=== PATIENT | male | born 1990 | race Caucasian/White ===

== ENCOUNTER 2022-03-01 19:47 | Emergency (ER) | payer OTHER, SELFPAY ==
[2022-03-01 19:58] VITALS: BP 148/84; PULSE 101; RESP 16; TEMP 37; O2SAT 99
[2022-03-01] MEDS: diphenhydrAMINE 25 MG CAPSULE 50 MG PO (20:33)
[2022-03-01] MEDS: LORazepam 0.5 MG TABLET PO (20:33)
[2022-03-01 20:46] VITALS: PULSE 67; O2SAT 98
[2022-03-01 21:00] VITALS: PULSE 87; O2SAT 96
--- NOTE | 2022-03-01 21:07 | ED_ITS ---
HPI - Weakness General Date Seen: 03/01/22 Chief complaint: Weakness Stated complaint: Dizzy feels faint Time Seen by Provider: 03/01/22 19:51 Source: patient and family Mode of arrival: ambulatory Limitations: no limitations History of Present Illness HPI Narrative: Patient is a 31-year-old gentleman who presents here with his , they were driving home from a family gathering, and he felt dizzy and faint. Whenever he set up that was worsening it was almost like he was on a ship, he noted that seem like he is balance was off. Denies a headache, diplopia double vision, associated with this and never had this before. Does not have a history of a fever chills, feels a little bit nauseous, but not greatly. Denies using any alcohol today, falls injury, or feeling really sick. Denies any ringing in his ears, or trauma. He is on medications for hypertension, and has been taking them normally. MD Complaint: generalized weakness Onset (ago): hour(s) Exacerbating factors: movement Associated symptoms: denies other symptoms Related Data Previous Rx's Medication Instructions Recorded nirmatrelvir 300 mg (150 mg See Rx Instructions PO .COMPLEX 03/01/22 x2)-ritonavir 100 mg tablet,dose #30 ea pack(EUA) (Paxlovid) nirmatrelvir 300 mg (150 mg See Rx Instructions PO .COMPLEX 03/01/22 x2)-ritonavir 100 mg tablet,dose #30 ea pack(EUA) (Paxlovid) Allergies Allergy/AdvReac Type Severity Reaction Status Date / Time codeine AdvReac Intermediate Verified 03/01/22 20:03 Penicillins AdvReac Intermediate Verified 03/01/22 20:03 Review of Systems Status of ROS: Reports: 10 or more systems reviewed and unremarkable except as noted in History and below PFSH PFS Social History Smoking Status: Never smoker Do you use any of these nicotine containing products: None Second hand tobacco smoke exposure: No How often do you have a drink containing alcohol: 2-4 times a month How many standard drinks containing alcohol do you have on a typical day: 3 or 4 How often do you have six or more drinks on one occasion: Less than monthly AUDIT-C Alcohol total score: 4 Non-prescribed substance use: denies use service: No Exam Narrative: Exam Narrative: On examination here in stabilization room 2 he is alert and oriented with a GCS of 15/15, nonfocal. Talking to me normally, however when I sit him up he is symptoms recur, briefly. There is some horizontal nystagmus bilaterally, beats common his did notice this. His TMs bilaterally are normal his oropharynx is normal his cranial nerves 3-12 are normal, his fundi appear normal his pupils are equal round reactive to light. Neck is supple full range of motion carotid upstrokes are equal, and JVP is flat. Chest is clear bilaterally no wheezing crackles noted heart sounds are normal, abdomen is soft no guarding no organomegaly. Moves all extremities independently and well his coordination is excellent, proximal verses distal muscle groups are normal, and he is symmetrically normal. Reflexes are normal in his upper lower extremities, muscle bulk is normal there are no rashes. Const: Vital Signs, click to edit/add: Vital Signs - 24 hr 03/01/22 19:58 03/01/22 20:46 03/01/22 21:00 Temperature 98.6 F Pulse Rate 67 87 Pulse Rate [Left P ulse Oximeter] 101 H Respiratory Rate 16 Blood Pressure [Ri ght Upper Arm] 148/84 H Pulse Oximetry 99 98 96 Oxygen Delivery Me thod Room Air 03/01/22 21:30 Temperature Pulse Rate 86 Pulse Rate [Left P ulse Oximeter] Respiratory Rate Blood Pressure [Ri ght Upper Arm] Pulse Oximetry 97 Oxygen Delivery Me thod Documenting provider has reviewed patient's vital signs: yes Course Course Hospital Course: Patient has remained stable he is vertigo did improve with the medications we use, I discussed with him that his COVID is positive, and this is can be a cause of the vertigo. Given the fact that he has an elevated BMI, and is on medications for hypertension he would be a candidate for Paxil of it. I went over the risks benefits and side effects of this with him, and checked with the liver pool interaction check her, both his blood pressure medications were okay to take with the Paxlovid Vital Signs Vital signs: Initial Vital Signs Temperature 98.6 F 03/01/22 19:58 Temperature Source Temporal Artery Scan 03/01/22 19:58 Pulse Rate 101 H 03/01/22 19:58 Pulse Rhythm 03/01/22 19:58 Respiratory Rate 16 03/01/22 19:58 Blood Pressure 148/84 H 03/01/22 19:58 Blood Pressure Mean 105 03/01/22 19:58 Blood Pressure Position Semi-Fowlers 03/01/22 19:58 Pulse Oximetry 99 03/01/22 19:58 Oxygen Delivery Method 03/01/22 19:58 Vital Signs Temperature 98.6 F 03/01/22 19:58 Pulse Rate 101 H 03/01/22 19:58 Respiratory Rate 16 03/01/22 19:58 Blood Pressure 148/84 H 03/01/22 19:58 Pulse Oximetry 99 03/01/22 19:58 Oxygen Delivery Method 03/01/22 19:58 Temperature 98.6 F 03/01/22 19:58 Pulse Rate 86 03/01/22 21:30 Respiratory Rate 16 03/01/22 19:58 Blood Pressure 148/84 H 03/01/22 19:58 Pulse Oximetry 97 03/01/22 21:30 Oxygen Delivery Method 03/01/22 19:58 MDM - Weakness MDM Narrative Medical decision making narrative: Life-threatening differential diagnosis considered include stroke, coronary artery disease, pneumonia, and heart failure. Other differential diagnosis include but are not limited to electrolyte imbalances, anemia, medication reactions, and urinary tract infection Medical Records Attestation: I reviewed the patient's medical records. Lab Data Attestation: I reviewed the patient's lab results. Labs: Lab Results 03/01/22 Range/Units 20:22 SARS-CoV-2 (PCR) POSITIVE SARS-CoV-2 A (Negative) Influenza Type A (PCR) Negative PCR FLU A (Negative) Influenza Type B (PCR) Negative PCR FLU B (Negative) RSV (PCR) Negative PCR RSV (Negative) Discharge Plan Discharge Clinical Impression: COVID-19, Vertigo Patient Disposition: Home w/ Parent or Adult Condition: Stable Instructions: Vertigo (DC), How To Wash Your Hands (ED), Dizziness (ED), Droplet Precautions (ED), COVID-19 (Coronavirus Disease 2019) (ED), COVID-19 and Chronic Health Conditions (ED), COVID-19: Slow the Coronavirus Spread (ED), Face Coverings (Masks) and COVID-19 (ED) Additional Instructions: Benadryl 25 mg to 50 mg p.o. as needed for the vertigo, this can be taken every 6 hours, side effects are making you tired, Paxil bid will decrease chance of complications secondary to the COVID, please take this as directed, you may take this with your blood pressure medications follow up here if worsening conditions such as respiratory problems with breathing, it may be worthwhile to by an oxygen saturation monitor. Prescriptions: New Paxlovid (EUA) 300 mg (150 mg x 2)-100 mg tablets,dose pack See Rx Instructions .ROUTE .COMPLEX Qty: 30 0RF Rx Instructions: take TWO 150 mg tablets of nirmatrelvir with ONE 100 mg tablet of ritonavir twice daily for 5 days Paxlovid (EUA) 300 mg (150 mg x 2)-100 mg tablets,dose pack See Rx Instructions .ROUTE .COMPLEX Qty: 30 0RF Rx Instructions: take TWO 150 mg tablets of nirmatrelvir with ONE 100 mg tablet of ritonavir twice daily for 5 days Follow Up/Referrals: Provider,Not a Local [Primary Care Provider] - Stand Alone Forms: [employer] Info Instructions
[2022-03-01 21:17] LABS: PCR FLU A Negative PCR FLU A (Negative); PCR FLU B Negative PCR FLU B (Negative); PCR RSV Negative PCR RSV (Negative)
[2022-03-01 21:19] LABS: SARS PCR* POSITIVE SARS-CoV-2 (Negative)
[2022-03-01 21:30] VITALS: PULSE 86; O2SAT 97
[2022-03-01 22:00] VITALS: PULSE 94; O2SAT 98
[2022-03-01 22:30] VITALS: PULSE 87; O2SAT 96
== END 2022-03-01 23:22 | disposition home or self-care (01) ==
PROVIDERS: Emergency Provider Family Medicine
DX: U07.1 COVID-19 (principal); R42 Dizziness and giddiness
CPT/HCPCS: 87502; 87634; 87635; 99283; 99284; A9270

== ENCOUNTER 2023-03-11 17:18 | Emergency (ER) | payer OTHER, SELFPAY ==
[2023-03-11 17:27] VITALS: BP 163/87; PULSE 94; RESP 20; TEMP 36.3; O2SAT 97; BMI 41.5
--- NOTE | 2023-03-11 19:15 | ED_ITS ---
HPI - Chest Pain General Time Seen by Provider: 19:15 Date Seen: 03/11/23 Chief Complaint: Chest Pain Stated Complaint: chest pain Time Seen by Provider: 03/11/23 19:02 Source: patient and RN notes reviewed Mode of arrival: ambulatory Limitations: no limitations History of Present Illness HPI narrative: This 32-year-old male is coming in with intermittent chest pain. He has been having episodes of chest pain lasting anywhere from minutes up to 30 minutes. He will notice it more rest than with activity. He did have an episode while he was in the lobby waiting to be seen, that 1 lasted maybe about 5 minutes. He is chest pain-free at this time. He has no diagnosis of cardiac disease. He notes no shortness of breath with it no sense of palpitations or change in heart rate with it. He does have underlying reflux which she will sometimes take Prilosec, that sensation is different. He will feel more of a central burning in his chest and sometimes will get regurgitant symptoms. He has had no cough or cold symptoms, no fevers. He does not feel sick. No associated nausea vomiting or abdominal pain with it. His reflux symptoms are different than this. He will get left-sided symptoms, will have shooting pain that goes down into the left arm. He has a remote history of tobacco products. Does drink alcohol on weekends. As far as family history, there is hypertension but he is not aware of anyone with cardiac disease, thromboembolic disease, any respiratory conditions. MD complaint: chest pain Related Data Home Medications Medication Instructions Recorded Confirmed chlorthalidone 50 mg tablet 50 mg PO DAILY 03/11/23 03/11/23 losartan 50 mg tablet 50 mg PO DAILY 03/11/23 03/11/23 omeprazole 20 mg capsule,delayed 20 mg PO DAILY 03/11/23 03/11/23 release Previous Rx's Medication Instructions Recorded potassium chloride 20 mEq 20 meq PO DAILY #7 tabs 03/11/23 tablet,extended release Allergies Allergy/AdvReac Type Severity Reaction Status Date / Time codeine AdvReac Intermediate Verified 03/01/22 20:03 Penicillins AdvReac Intermediate Verified 03/01/22 20:03 Review of Systems Status of ROS Reports: 6 or more systems reviewed and unremarkable except as noted in History and below PFSH PFSH Social History Smoking Status: Never smoker Do you use any of these nicotine containing products: None Second hand tobacco smoke exposure: No How often do you have a drink containing alcohol: 2-4 times a month How many standard drinks containing alcohol do you have on a typical day: 3 or 4 How often do you have six or more drinks on one occasion: Less than monthly AUDIT-C Alcohol total score: 4 Non-prescribed substance use: denies use service: No Exam Const Vital Signs, click to edit/add: Vital Signs - 24 hr 03/11/23 17:27 03/11/23 19:27 Temperature 97.4 F L Pulse Rate [Pulse Oximeter] 94 Respiratory Rate 20 Blood Pressure [Right Upper Arm] 163/87 H Pulse Oximetry 97 96 Oxygen Delivery Method Room Air Patient is alert, interactive, no apparent distress. He is very pleasant but obese 32-year-old gentleman seen in exam room 2. Sclera clear, conjugate gaze. Symmetrical facial function. Neck is supple, no jugular venous distension, no thyromegaly masses or nodules come no cervical adenopathy. Lungs are clear, good air entry, no wheezing or crackles. CV regular rate and rhythm, no murmur, normal S1-S2, no S3-S4. No reproducible chest wall tenderness. Abdomen is obese but soft, nontender, do not feel any masses. No lower extremity edema, patient was ambulatory into the ED of his own accord. Currently chest pain- free. Documenting provider has reviewed patient's vital signs: yes Course Course ED Course: Reviewed with patient imaging based off his D-dimer, either chest x-ray or CT PE protocol. Will get full complement of labs. This could be musculoskeletal, pulmonary, thromboembolic disease, cardiac. Possible for even atypical GI symptoms. He is currently pain-free and hemodynamically stable. He is having episodic symptoms which would make it necessary in for follow-up if we do discharge with normal workup tonight. Reevaluation(s) Time of Reevaluation #1: 20:17 Reevaluation #1: Patient's potassium came back at 2.9. He states he does eat 2 bananas a day with being on the chlorthalidone. He is also on losartan. Will give him 50 mEq of effervescent potassium. His D-dimer has come back normal, will proceed with imaging with chest x-ray. At this time, patient has been pain-free during his time here. Have discussed with he and his that his cardiac enzyme is normal. However, when we see patients that are having episodic symptoms, we cannot 100% rule out the possibility of underlying blockages or ischemic disease. I can tell in that he is not having an acute heart attack at this time and that there has been no change to his troponin. We discussed this so that there where that they will need follow-up. With his potassium coming back low, it could be causing him some symptoms, even muscle spasm. Time of Reevaluation #2: 21:35 Reevaluation #2: Reviewed with patient his chest x-ray showing no acute pathology. He indeed did have his left clavicle pinned before. Vital Signs Vital signs: Initial Vital Signs Temperature 97.4 F L 03/11/23 17:27 Temperature Source Temporal Artery Scan 03/11/23 17:27 Pulse Rate 94 03/11/23 17:27 Respiratory Rate 20 03/11/23 17:27 Blood Pressure 163/87 H 03/11/23 17:27 Blood Pressure Mean 112 H 03/11/23 17:27 Pulse Oximetry 97 03/11/23 17:27 Oxygen Delivery Method Room Air 03/11/23 17:27 Vital Signs Temperature 97.4 F L 03/11/23 17:27 Pulse Rate 94 03/11/23 17:27 Respiratory Rate 20 03/11/23 17:27 Blood Pressure 163/87 H 03/11/23 17:27 Pulse Oximetry 97 03/11/23 17:27 Oxygen Delivery Method Room Air 03/11/23 17:27 Temperature 97.4 F L 03/11/23 17:27 Pulse Rate 94 03/11/23 17:27 Respiratory Rate 20 03/11/23 17:27 Blood Pressure 163/87 H 03/11/23 17:27 Pulse Oximetry 96 03/11/23 19:27 Oxygen Delivery Method Room Air 03/11/23 17:27 Medications Administered Medications: Discontinued Medications Generic Name Dose Route Start Last Admin Trade Name Freq PRN Reason Stop Dose Admin Potassium Bicarbonate 50 meq 03/11/23 20:16 03/11/23 20:25 Potassium Bicarb 25 Meq Effervescent Tab PO 03/11/23 20:17 50 meq ONCE ONE Administration MDM - Chest Pain Lab Data Attestation: I reviewed the patient's lab results. Labs: Lab Results 03/11/23 03/11/23 Range/Units 19:27 19:35 WBC 7.33 (4.50-11.00) K/uL RBC 5.00 (4.30-5.90) m/uL Hgb 15.0 (13.5-17.5) gm/dL Hct 43.5 (37.0-53.0) % MCV 87 (80-100) fL MCH 30 (26-34) pg MCHC 35 (32-36) gm/dL RDW Coeff of Cassidy 12.2 (11.5-15.5) % Plt Count 261 (140-440) K/uL Neut % (Auto) 66.3 (42.0-72.0) % Lymph % (Auto) 19.9 L (20-44) % [place] % (Auto) 10.9 (0.0-11.0) % Eos % (Auto) 2.3 (0.0-7.0) % Baso % (Auto) 0.5 (0.0-3.0) % Neut # (Auto) 4.85 (1.7-7.0) K/uL Lymph # (Auto) 1.50 (0.90-2.90) K/uL [place] # (Auto) 0.80 (0.00-0.90) K/UL Eos # (Auto) 0.17 (0.00-0.50) K/uL Baso # (Auto) 0.04 (0.00-0.30) K/uL Abs Immat Gran (auto) 0.01 (0.00-0.30) K/uL Imm/Tot Granulo (auto) 0.1 % D-Dimer Quant (PE/DVT) < 0.27 (0.00-0.50) ug/ml Sodium 136 (135-149) mmol/L Potassium 2.9 L* (3.6-5.1) mmol/L Chloride 99 (96-114) mmol/L Carbon Dioxide 29 (20-32) mmol/L Anion Gap 8 (7-15) mEq/L BUN 14 (5-24) mg/dL Creatinine 0.7 (0.5-1.5) mg/dL Estimated Creat Clear 187.39 Estimated GFR 124 ml/min Glucose 109 (60-115) mg/dL Calcium 9.2 (8.4-10.6) mg/dL Total Bilirubin 0.4 (0.1-1.5) mg/dL AST 28 (12-35) U/L ALT 37 (4-50) U/L Alkaline Phosphatase 61 (40-150) U/L C-Reactive Protein 1.2 H (0.5-1.0) mg/dL NT-Pro-B Natriuret Pep < 20 pg/mL Total Protein 7.6 (6.0-8.3) g/dL Albumin 4.6 (3.3-5.0) g/dL POC Troponin I 0.00 L (0.01-0.04) ng/ml Imaging Data Chest x-ray: Attestation: I have reviewed the pertinent imaging results. My impression: Patient appears to have had left clavicle pin, otherwise I see no acute pathology. Radiologist's impression: Patient: [facility] Facility:?[facility] Patient ID:?[id number] Site Patient ID:?[id number]. Site :?[id number] Study:?XRay Chest 2 VIEW-03/11/2023 8:50:14 PM Ordering Physician:?Stefany Duvall Final Report: INDICATION: Chest pain. TECHNIQUE: Chest 2 views. COMPARISON: None. FINDINGS: Cardiovascular and mediastinum: Heart size and vasculature are normal in caliber and appearance. Lungs and pleural spaces: Lungs are clear. No sign of infiltrate or mass. No sign of pleural effusion. No pneumothorax. Bones and soft tissues: No significant findings. IMPRESSION: No acute or significant findings. Dictated by Sarath Martinez MD @ 03/11/2023 8:58:23 PM (Electronic Signature) ECG Data Attestation: I personally reviewed and interpreted this ECG as follows: (Normal sinus rhythm, 80 beats per minute. Incomplete right bundle branch block. QT corrected 459 milliseconds. No evidence of any active ischemic change or [place].) ECG interpretation date: 03/11/23 ECG interpretation time: 19:31 Discharge Plan Discharge Clinical Impression: Chest pain, Acute hypokalemia Patient Disposition: Home, Self-Care Condition: Stable Instructions: Chest Pain (ED), Potassium Content of Foods List (ED), Hypokalemia (ED), Noncardiac Chest Pain (ED) Additional Instructions: Start potassium replacement 20 mEq daily tomorrow. Need to get scheduled for clinic followup within the next week. Your potassium needs to be rechecked, need to discuss further testing such as echo, cardiac stress testing. If you are having increasing chest pain, feel your symptoms are worsening, develop any shortness of breath, feel heart rate is elevating or irregular with chest symptoms, do need to be re-evaluated in the interim. Activity Level: Activity as Tolerated Prescriptions: New potassium chloride 20 mEq tablet extended release 20 meq PO DAILY Qty: 7 0RF No Action losartan 50 mg tablet 50 mg PO DAILY chlorthalidone 50 mg tablet 50 mg PO DAILY omeprazole 20 mg capsule,delayed release(DR/EC) 20 mg PO DAILY Follow Up/Referrals: Provider,Not a Local [Primary Care Provider] - Stand Alone Forms: [employer] Info Instructions
[2023-03-11 19:27] VITALS: O2SAT 96
[2023-03-11 19:47] LABS: Hematocrit 43.5 % (37.0-53.0); Mean Corpuscular HGB Conc 35 gm/dL (32-36); Mean Corpuscular Hemoglobin 30 pg (26-34); Mean Corpuscular Volume 87 fL (80-100); Platelet Count* 261 K/uL (140-440); RDW Coefficient of Variation % 12.2 % (11.5-15.5); White Blood Count* 7.33 K/uL (4.50-11.00)
[2023-03-11 19:48] LABS: Basophils Absolute Auto 0.04 K/uL (0.00-0.30); Basophils Percent Auto 0.5 % (0.0-3.0); Eosinophils Absolute Auto 0.17 K/uL (0.00-0.50); Eosinophils Percent Auto 2.3 % (0.0-7.0); Immature Granulocytes Abs Auto 0.01 K/uL (0.00-0.30); Immature Granulocytes Pct Auto 0.1 %; Lymphocytes Percent Auto 19.9 % (20-44); Monocytes Percent Auto 10.9 % (0.0-11.0); Neutrophils Absolute Auto 4.85 K/uL (1.7-7.0); Neutrophils Percent Auto 66.3 % (42.0-72.0)
[2023-03-11 19:50] LABS: Slide Review Reflex No
[2023-03-11 20:00] VITALS: BP 129/83; PULSE 69; O2SAT 95
[2023-03-11 20:02] LABS: Albumin* 4.6 g/dL (3.3-5.0); Chloride* 99 mmol/L (96-114)
[2023-03-11 20:03] LABS: Sodium* 136 mmol/L (135-149)
[2023-03-11 20:05] LABS: Alkaline Phosphatase* 61 U/L (40-150); Anion Gap 8 mEq/L (7-15); Aspartate Amino Transferase* 28 U/L (12-35); Bilirubin Total* 0.4 mg/dL (0.1-1.5); Carbon Dioxide* 29 mmol/L (20-32); Creatinine* 0.7 mg/dL (0.5-1.5); Est. Creatinine Clearance* 187.39; Estimated Glomerular Filt Rate 124 ml/min; Total Protein* 7.6 g/dL (6.0-8.3)
[2023-03-11 20:06] LABS: Alanine Aminotransferase* 37 U/L (4-50); Blood Urea Nitrogen* 14 mg/dL (5-24); Calcium* 9.2 mg/dL (8.4-10.6); Glucose* 109 mg/dL (60-115)
[2023-03-11 20:07] LABS: D Dimer Quantitative* < 0.27 ug/ml (0.00-0.50)
[2023-03-11 20:08] LABS: Potassium* 2.9 mmol/L (3.6-5.1)
[2023-03-11 20:09] LABS: C Reactive Protein* 1.2 mg/dL (0.5-1.0)
--- NOTE | 2023-03-11 20:22 | CRLHL7_ITS ---
For Patients: As a result of the Cures Act, medical imaging exams and procedure reports are released immediately into your electronic medical record. You may view this report before your referring provider. If you have questions, please contact your health care provider. INDICATION: Chest pain. TECHNIQUE: Chest 2 views. COMPARISON: None. FINDINGS: Cardiovascular and mediastinum: Heart size and vasculature are normal in caliber and appearance. Lungs and pleural spaces: Lungs are clear. No sign of infiltrate or mass. No sign of pleural effusion. No pneumothorax. Bones and soft tissues: No significant findings. IMPRESSION: No acute or significant findings. Dictated by Sarath Martinez MD @ 03/11/2023 8:58:23 PM (Electronically Signed)
[2023-03-11] MEDS: POTASSIUM BICARB 25 MEQ EFFERVESCENT TAB 50 MEQ PO (20:25)
[2023-03-11 20:30] VITALS: BP 141/82; PULSE 80; O2SAT 95
[2023-03-11 20:32] LABS: NT Pro B Type NatriureticPept* < 20 pg/mL
[2023-03-11 21:00] VITALS: BP 128/81; PULSE 65; O2SAT 95
[2023-03-11 21:30] VITALS: BP 132/85; PULSE 71; O2SAT 96
== END 2023-03-11 21:50 | disposition home or self-care (01) ==
PROVIDERS: Emergency Provider Family Medicine
DX: R07.9 Chest pain, unspecified (principal); E87.6 Hypokalemia
CPT/HCPCS: 36415; 71046; 80053; 83880; 84484; 85025; 85379; 86140; 93005; 94761; 99284; 99285; A9270